=== PATIENT | female | born 1945 | race Caucasian/White ===

== ENCOUNTER 2016-04-02 12:05 | Emergency (ER) | payer OTHER ==
[2016-04-02] MEDS ORDERED: KETOROLAC TROMETHAMINE 60 MG/2 ML VIAL IM ONE (12:49)
--- NOTE | 2016-04-02 13:47 | Diagnostic Imaging Report ---
[facility] [address] [facility].[address] [id number] Report Submission Date: Apr 02, 2016 12:57:36 PM REGIONAL WILDLIFE AGENT Patient Study Name: SRINIVASAN ESCOBEDO Date: Apr 02, 2016 12:30:28 PM REGIONAL WILDLIFE AGENT Modality Type: CR Gender: F Description: LOWER EXTREMITY : 45 Institution: [facility] Physician: MANAV DENNEY (FOUNDATION DIRECTOR) - ER 3 views of the left knee Clinical history: Left knee pain Findings: There is questionable lucency in the mid aspect of the lateral tibial plateau. Otherwise, no fracture or dislocation identified. There is a joint effusion. Impression: 1. Small knee joint effusion. 2. Lucency in the lateral tibial plateau, nondisplaced tibial plateau fracture cannot be excluded. CT scan is recommended for further evaluation. Electronically signed on Apr 02, 2016 12:57:36 PM REGIONAL WILDLIFE AGENT by: Pop DUARTE
--- NOTE | 2016-04-02 13:48 | Diagnostic Imaging Report ---
[facility] [address] [facility] [address] 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 Reformations obtained. Findings: There is a nondisplaced lateral posterior tibial plateau fracture. The fracture line extends inferiorly into the proximal aspect of the tibia. The fibula is intact. The femur is intact. The patellar alignment is within normal limits. There is a small knee joint effusion. Impression: Shatzker type I tibial plateau fracture with a small knee joint effusion. Electronically signed on Apr 02, 2016 1:43:35 PM NOVELTY PRINTING MACHINE OPERATOR by: Pop DUARTE
--- NOTE | 2016-04-02 14:11 | ED Physician Documentation ---
Fall - HISTORIAN Historian: patient - HPI Stated Complaint: Left Knee Injury Chief Complaint: Fall Onset: just prior to arrival Where: work Context: lost balance Associated Symptoms:: no loss of consciousness Location of Pain/Injury: lower extremity (left knee) Injury to Right Extremity: none Injury to Left Extremity: knee Further Comments: yes (70 year old female patient presents with left knee pain, states she fell and landed on her left knee while at work, states she was at work at [employer]. C/O pain 10/30) - ROS CONST: no problems NEURO: denies: dizziness, anxiety, depression, other MS/SKIN/LYMPH: denies: weakness, numbness, neck pain, back pain, ankle swelling , leg swelling, rash, other EYES/ENT: none CVS/RESP: none GI/: denies: nausea, vomiting - PAST HX Past History: other (Chronic knee pain, OA) Allergies/Adverse Reactions: Allergies Allergy/AdvReac Type Severity Reaction Status Date / Time No Known Allergies Allergy Unverified 04/02/16 12:23 Home Medications: Ambulatory Orders Medication Instructions Recorded NK [NK] 04/02/16 - SOCIAL HX Smoking History: non-smoker - FAMILY HX Family History: denies: none - VITAL SIGNS Vital Signs: Vital Signs Temp Pulse Resp BP Pulse Ox 97 F L 70 18 132/76 99 04/02/16 12:05 04/02/16 12:05 04/02/16 12:05 04/02/16 12:05 04/02/16 12:05 - REVIEWED ASSESSMENTS Nursing Assessment Reviewed: Yes Vitals Reviewed: Yes Progress - Progress Progress: Reviewed xray results with patient, will progress with CT as recommended. Reviewed CT results with patient and family, immobilizer placed on patient. Reviewed all discharge instructions including NO weight bearing on left leg. Offered to do crutch teaching after patient obtained crutches. Prescription provided for crutches and walker to use if needed. Questions answered. Pain improved with toradol and placement of immobilizer. ED Results Lab/Radiology - Orders Orders: ED Orders Category Date Time Status CT LEG W/O CONTRAST Stat Exams 04/02/16 Completed KNEE 3 VIEWS [RAD] Stat Exams 04/02/16 12:19 Completed Ketorolac Tromethamine [Toradol] Med 04/02/16 12:49 Discontinued 60 mg IM NOW ONE 3 views of the left knee Clinical history: Left knee pain Findings: There is questionable lucency in the mid aspect of the lateral tibial plateau. Otherwise, no fracture or dislocation identified. There is a joint effusion. Impression: 1. Small knee joint effusion. 2. Lucency in the lateral tibial plateau, nondisplaced tibial plateau fracture cannot be excluded. CT scan is recommended for further evaluation. Electronically signed on Apr 02, 2016 12:57:36 PM PHYSIOGNOMIST by: Pop Jama CT of the left knee Clinical history: Left knee pain, concern for tibial plateau fracture Technique: Multiple contiguous axial images were taken to the left knee without the use of contrast. Reformations obtained. Findings: There is a nondisplaced lateral posterior tibial plateau fracture. The fracture line extends inferiorly into the proximal aspect of the tibia. The fibula is intact. The femur is intact. The patellar alignment is within normal limits. There is a small knee joint effusion. Impression: Shatzker type I tibial plateau fracture with a small knee joint effusion. Electronically signed on Apr 02, 2016 1:43:35 PM PHYSIOGNOMIST by: Pop Jama Fall Physical Exam - Physical Exam General Appearance: moderate distress Head: non-tender, no swelling, no obvious injury Eye: ALLISON Resp/CVS: chest non-tender, no ecchymosis, breath sounds nml, no resp. distress , heart sounds nml Abdomen: soft, no organomegaly, normal bowel sounds, no abdominal bruit, no distension Neuro: oriented x3, CN's nml as tested, sensation nml, motor nml, mood/affect nml, well flow operator nml, reflexes nml, well flow operator symmetrical Skin: color nml, no rash, nml palp., dry Extremities: atraumatic, pelvis stable, hips non-tender, no pedal edema, nml color/temp, bony point-tenderness (left knee and tibial plateau), unable to bear weight (left knee ) Joint: limited ROM (left knee) - Marielle Coma Score Eyes Open: Spontaneous Speech: Oriented Motor: Obeys Commands Discharge Clincal Impression: Tibial plateau fracture, left Qualifiers: Encounter type: initial encounter Fracture type: closed Qualified Code(s): S82.142A - Displaced bicondylar fracture of left tibia, initial encounter for closed fracture Additional Instructions: Make an appointment to see ortho as soon as possible, take your disk and reports with you to the appointment. No weight bearing of left leg. You may remove the immobilizer to shower. Otherwise wear it at all times. Ice to left tibial plateau area - just below the knee. Do not take ibuprofen or NSAIDs until you are seen by ortho. Home Medications: Ambulatory Orders NK [NK] 04/02/16 Condition: Stable Disposition: 01 HOME, SELF-CARE Decision to Admit: NO Decision Time: 14:10
[2016-04-02 14:29] VITALS: BP 132/68
== END 2016-04-02 14:28 | disposition home or self-care (01) ==
LOC: ED 12:17
DX: S82.142A Displaced bicondylar fracture of left tibia, initial encounter for closed fracture (principal); W19.XXXA Unspecified fall, initial encounter; Y93.9 Activity, unspecified; Y99.9 Unspecified external cause status
CPT/HCPCS: 73562; 73700; J1885; L1830; 96372; 99283